=== PATIENT | male | born 1990 | race Caucasian/White ===

== ENCOUNTER → 2016-12-20 | Outpatient (CLI) | payer OTHER | LOC: BHSO 11:16 | DX: F41.1 Generalized anxiety disorder (principal) ==

== ENCOUNTER → 2017-07-25 | Outpatient (CLI) | payer OTHER | LOC: BHSO 14:47 | DX: F06.32 Mood disorder due to known physiological condition with major depressive-like episode (principal) ==

== ENCOUNTER → 2018-09-18 | Outpatient (CLI) | payer OTHER | LOC: BHSO 13:20 | DX: F41.1 Generalized anxiety disorder (principal) | CPT/HCPCS: G0463 ==

== ENCOUNTER → 2020-11-01 | Outpatient (CLI) | payer OTHER ==
[2020-11-01 23:21] LABS: IMMUNOGLOBULIN A 141 mg/dL (63-484); IMMUNOGLOBULIN G 697 mg/dL (540-1822); IMMUNOGLOBULIN M, QUANTITATIVE 80 mg/dL (22-240)
[2020-11-01 23:52] LABS: FOLATE (FOLIC ACID) 11.3 ng/mL (7.0-31.4)
[2020-11-02 15:07] LABS: LYME DISEASE ANTIBODIES Negative (Negative)
== END ==
LOC: COL.LAB 12:15 → COL.RAD 12:15
PROVIDERS: Psychiatry & Neurology Neurology
DX: M54.9 Dorsalgia, unspecified (principal); E55.9 Vitamin D deficiency, unspecified; E53.9 Vitamin B deficiency, unspecified; E61.2 Magnesium deficiency; E53.8 Deficiency of other specified B group vitamins; E53.1 Pyridoxine deficiency; Z79.899 Other long term (current) drug therapy
CPT/HCPCS: A9585

== ENCOUNTER → 2021-02-19 | Outpatient (CLI) | payer BC | LOC: COL.RAD 07:55 | DX: E83.110 Hereditary hemochromatosis (principal) | CPT/HCPCS: A9585 ==

== ENCOUNTER → 2024-10-22 | Outpatient (CLI) | payer BC | LOC: COL.RAD 10:51 | DX: K40.90 Unilateral inguinal hernia, without obstruction or gangrene, not specified as recurrent (principal); N50.82 Scrotal pain ==